=== PATIENT | male | born 1940 ===

== ENCOUNTER 2019-04-04 16:25 | Inpatient (IN) | payer MEDICARE ==
--- NOTE | 2019-04-04 17:42 | NUR ---
Patient arrived at 1625 from [facility] via [facility]. Patient was direct admit, RN unaware. Patient was confused, mumbling when initially brought into room and transferred to bed. Upon turning patient, he began agonally breathing. Heart monitor applied and patient was in VFIB. Code blue called at 1628. See code blue sheet. Patient's son in waiting room, brought into room, verified code status. Ray, patient's son stated he wanted patient coded, but not intubated. Patient was begged during entire code. Patient's son present. After multiple rounds of CPR, shocking pt, his son stated he did not want anymore coding of the patient and the patient was pronounced at 1641. See code blue sheet.
--- NOTE | 2019-04-17 19:08 | PDOC ---
Provider Note Provider Note The patient on April 04, 2019. summary dictated. #[id number] ALEISHA MCELROY MD Apr 17, 2019 19:08
--- NOTE | 2019-04-17 21:27 | DS ---
DATE OF DISCHARGE: 04/04/2019 SUMMARY This is a summary for the patient who was admitted to [facility] on 04/04/2019 and on the same day. HISTORY OF PRESENT ILLNESS: This is a 79-year-old male who was initially admitted to [facility] on 02/14/2019 because of change in mental status. He was noted to have stage 4 sacral ulcer, abdominal dehiscence wound, had a history of hypertension, hyperlipidemia, type 2 diabetes mellitus, chronic kidney disease stage 3, coronary artery disease status post 2 stents, history of myocardial infarction in 2011, TIA x 6 over the last decade, benign prostatic hypertrophy, COPD, obstructive sleep apnea on CPAP, depression, dementia and also was noted to have chronic myelocytic leukemia with leukocytosis with white count going up to 99,000. He had a colostomy bag placed and also had profound delayed wound healing and had lost 100 pounds in the previous year. He had not been ambulatory and developed a stage 4 sacral ulcer, and the superintendent menagerie did not recommend chemotherapy for his chronic myelocytic leukemia because of his poor quality of life and the sacral wound. The patient was also treated for left lower lobe community-acquired pneumonia and also had left-sided pleural effusion and had a left lung resection with also history of COPD and a [id number] smoking history. The patient was initially treated at [facility] with meropenem and vancomycin. He was transferred to [facility] on 03/29/2019. At [facility] as well as at [facility], the patient remained very angry and agitated. He was seen by Dr. Ortiz for pulmonary evaluation and management, Dr. Chavira for Infectious Disease evaluation and management, Dr. Barger for Neurology evaluation and management and Dr. Hester for psychiatric evaluation and management. He was started on IV Zosyn and wound care was continued; however, the patient remained extremely agitated. He was given different medications and many medications were adjusted to help with his agitation and condition. He was started on intramuscular Zyprexa and was on oral Seroquel. The patient continued to refuse his medications and remained very agitated and noncooperative. On 04/04/2019, I had seen the patient in the morning and he remained confused and uncooperative. Previous night, he had refused some medications. Subsequently, the patient was noted to have melanotic stool in the colostomy bag and his blood pressure was low. Staff called the Emergency Room physician at [facility] to see the patient. The patient had a hematoma on the left arm and the PICC line was infiltrated. The patient was very agitated and he was pale, but he did not allow the staff to draw blood and resisted all efforts to provide care to him. The ER physician recommended palliative care. Palliative care was also previously recommended to the family at the previous hospital. Staff spoke to the son and he wanted to continue aggressive care, so IV fluids were continued. The patient was given multiple boluses of IV fluids. The patient was also started on Levophed as the blood pressure remained low. Initial hemoglobin was reported at 6.7 and 1 unit of packed red cell was ordered to be transfused. Subsequently, hemoglobin had dropped to 5. The patient was continued on IV fluids, Levophed and blood transfusion. The patient was subsequently seen by Dr. Ortiz, who is a claim specialist and after discussion with me, we had ordered the patient to be transferred to [facility]. Consultation was also obtained with Dr. Frost for GI evaluation and management. Dr. Frost saw the patient later. The patient has an ileostomy bag that had logan blood in it when Dr. Ortiz saw the patient. Dr. Frost felt that he would need a GI bleeding scan. A transfer was ordered to [facility] Intensive Care Unit. The patient was continued on Levophed and IV fluids and blood transfusion. The patient came to the ICU at [facility] and also Dr. Frost arrived there. However, the patient had agonal breathing. He was noted to be in ventricular fibrillation. He was coded. The son did not want him to be intubated, so he was bagged throughout. The patient had multiple rounds of CPR and shocks, and the son finally decided to stop the CPR. The patient on 04/04/2019. FINAL DIAGNOSES: 1. Acute gastrointestinal bleeding. 2. Acute renal failure with chronic kidney disease stage 3. 3. Ventricular fibrillation. 4. Acute metabolic encephalopathy. 5. Dementia with agitation. 6. Sacral ulcer, stage 4. 7. Acute blood loss anemia. 8. Left pleural effusion. 9. Coronary artery disease. 10. History of myocardial infarction. 11. Hypertension. 12. Chronic obstructive pulmonary disease. 13. Obstructive sleep apnea, on CPAP. 14. Depression. 15. Acute renal failure with chronic kidney disease. BUN had gone up to 87 and creatinine at 3.88 on 04/04/2019. Previously, his BUN was 61 and creatinine 1.85. 16. Severe protein-calorie malnutrition with albumin of 1.8, 2. 17. History of transient ischemic attacks x 6. 18. Urinary incontinence. 19. Leukocytosis due to chronic myelocytic leukemia. The previous WBC count was 97.5, the patient likely in a blast crisis and not a candidate for chemotherapy. 20. Wound dehiscence from the abdominal surgical site. 21. Physical deconditioning. 22. History of hyperkalemia. 23. History of left lung resection. 24. Benign prostatic hypertrophy. DISPOSITION: . ALEISHA MCELROY MD DR: ESTELA/phil JOB#: [id number] / [id number]
== END 2019-04-04 16:48 | disposition expired | DRG 377 ==
LOC: 1 WEST ICU 16:25
PROVIDERS: ADMIT Internal Medicine; ATTEND Internal Medicine
PROC: 5A12012 Performance of Cardiac Output, Single, Manual (ICD-10-PCS; principal; 2019-04-04)
DX: K92.2 Gastrointestinal hemorrhage, unspecified (principal); G93.41 Metabolic encephalopathy; E43 Unspecified severe protein-calorie malnutrition; T81.30XA Disruption of wound, unspecified, initial encounter; F03.91 Unspecified dementia, unspecified severity, with behavioral disturbance; C92.10 Chronic myeloid leukemia, BCR/ABL-positive, not having achieved remission; J90 Pleural effusion, not elsewhere classified; D62 Acute posthemorrhagic anemia; N17.9 Acute kidney failure, unspecified; I49.01 Ventricular fibrillation; E11.22 Type 2 diabetes mellitus with diabetic chronic kidney disease; I12.9 Hypertensive chronic kidney disease with stage 1 through stage 4 chronic kidney disease, or unspecified chronic kidney disease; N18.3 Chronic kidney disease, stage 3 (moderate); E78.5 Hyperlipidemia, unspecified; I25.10 Atherosclerotic heart disease of native coronary artery without angina pectoris; N40.0 Benign prostatic hyperplasia without lower urinary tract symptoms; G47.33 Obstructive sleep apnea (adult) (pediatric); F32.9 Major depressive disorder, single episode, unspecified; R32 Unspecified urinary incontinence; J44.9 Chronic obstructive pulmonary disease, unspecified; Z90.2 Acquired absence of lung [part of]; Z95.5 Presence of coronary angioplasty implant and graft; I25.2 Old myocardial infarction; Z93.3 Colostomy status; Z87.891 Personal history of nicotine dependence; Z93.2 Ileostomy status; Z86.73 Personal history of transient ischemic attack (TIA), and cerebral infarction without residual deficits; E11.622 Type 2 diabetes mellitus with other skin ulcer; L98.419 Non-pressure chronic ulcer of buttock with unspecified severity
CPT/HCPCS: 92950; 99285-25; G0378